=== PATIENT | female | born 1955 | race African-American/Black ===

== ENCOUNTER 2021-01-29 03:02 | Inpatient (IN) | payer OTHER ==
[~2021-01-29] VITALS: Ht 162.6 cm; Wt 82.6 kg
[2021-01-29] MEDS ORDERED: DEXAMETHASONE 10 MG/ML VIAL IV ONE (03:45)
[2021-01-29] MEDS ORDERED: LEVOFLOXACIN 750MG PREMIX 150 ML IV ONE (03:45)
[2021-01-29 04:02] LABS: HEMATOCRIT. 36.7 % (36.0-48.0); HEMOGLOBIN. 12.3 g/dL (12.0-16.0); LYMPHOCYTES % 15.9 % (20.0-50.0); MEAN CORPUSCULAR HEMOGLOBIN 27.7 pg (28.0-32.0); MEAN CORPUSCULAR VOLUME 82.9 fL (81.0-99.0); MEAN PLATELET VOLUME 9.3 fl (7.4-10.4); MONOCYTES % 7.8 % (2.0-8.0); NEUTROPHILS % 75.3 % (40.0-76.0); PLATELET 179 x1000/uL (130-400); RED BLOOD CELL COUNT 4.42 mill/uL (4.2-5.4); RED CELL DISTRIBUTION WIDTH 15.7 % (11.6-14.6)
[2021-01-29 04:04] LABS: BG BASE EXCESS 1.1 mmol/L (-2.0-2.0); BG CARBOXYHEMOGLOBIN 0.3 % (0.5-1.5); BG DEOXYHEMOGLOBIN 5.5 % (0.0-5.0); BG FRACTION INSPIRED OXYGEN 100; BG HCO3 ACT 24.8 mmol/L (22.0-26.0); BG METHEMOGLOBIN 0.1 % (0.0-1.5); BG OXYGEN SATURATION 94.5 % (92.0-98.5); BG OXYHEMOGLOBIN 94.1 % (94.0-97.0); BG PCO2 36.3 mmHg (35.0-45.0); BG PH 7.452 (7.350-7.450); BG PO2 69.4 mmHg (75.0-100.0); BG SAMPLE SITE RIGHT RADIAL; BG TOTAL HEMOGLOBIN 12.7 g/dL (12.0-18.0); BG VENT MODE MASK - BIPAP
[2021-01-29 04:11] LABS: CHLORIDE 104 mEq/L (98-107)
[2021-01-29] MEDS ORDERED: ASPIRIN 325MG EC TABLET PO ONE (04:15)
[2021-01-29 04:17] LABS: INR 0.9
[2021-01-29] MEDS ORDERED: ENOXAPARIN 80MG/0.8ML SYR SUBCUT ONE (04:45)
[2021-01-29] MEDS ORDERED: DEXTROSE 50% WATER 50ML SYRINGE IV PRN (11:15)
[2021-01-29] MEDS ORDERED: GUAIFENESIN 200MG/10ML SUGAR FREE UDC PO PRN (11:15)
[2021-01-29] MEDS: ENOXAPARIN 40MG/0.4ML SYR SUBCUT SCH (12:00)
[2021-01-29] MEDS: ERGOCALCIFEROL 50000UNITS CAPSULE PO SCH (12:04)
[2021-01-29] MEDS: DEXAMETHASONE 10 MG/ML VIAL IV SCH (12:04)
[2021-01-29 12:47] LABS: CLARITY URINE CLEAR (CLEAR); COLOR URINE YELLOW (YELLOW); KETONES URINE NEGATIVE (NEGATIVE); LEUKOCYTE ESTERASE URINE NEGATIVE (NEGATIVE); NITRITE URINE NEGATIVE (NEGATIVE); OCCULT BLOOD URINE TRACE (NEGATIVE); PROTEIN URINE 3+ (NEGATIVE); SPECIFIC GRAVITY URINE 1.014 (1.005-1.030); UROBILINOGEN URINE 0.2 E.U./dL (0.2-1.0)
[2021-01-29] MEDS ORDERED: AZITHROMYCIN 500 MG in DEXT 5% WATER 250 ML IV SCH (13:00)
[2021-01-29] MEDS: BLOOD SUGAR DIAGNOSTIC STRIP TEST SCH ×3 (13:00→21:43)
[2021-01-29] MEDS ORDERED: SODIUM CHLORIDE 0.9% INJ 3ML FLUSH IVF SCH (14:00)
[2021-01-29] MEDS: INSULIN LISPRO 100 UNITS/ML SUBCUT SCH ×3 (14:15→21:54)
[2021-01-29] MEDS: HYDRALAZINE 20MG/ML VIAL IV PRN ×2 (14:17→21:51)
[2021-01-29] MEDS: ACETAMINOPHEN 325MG TABLET PO PRN (21:51)
[2021-01-29] MEDS: GUAIFENESIN 600MG ER TABLET PO SCH (22:00)
[2021-01-29 22:30] VITALS: BP 155/86
[2021-01-29 23:00] VITALS: BP 155/86
[2021-01-29 23:58] VITALS: BP 149/79
[2021-01-30] VITALS (51 sets, daily range): BP systolic 136–201; BP diastolic 73–99
[2021-01-30] MEDS: HYDRALAZINE 20MG/ML VIAL IV PRN ×2 (03:51→10:23)
[2021-01-30 05:45] LABS: CHLORIDE 109 mEq/L (98-107)
[2021-01-30 05:49] LABS: BASOPHILS % 0.2 % (0.0-2.0); HEMATOCRIT. 36.9 % (36.0-48.0); HEMOGLOBIN. 12.4 g/dL (12.0-16.0); LYMPHOCYTES % 12.6 % (20.0-50.0); MEAN CORPUSCULAR HEMOGLOBIN 27.9 pg (28.0-32.0); MEAN CORPUSCULAR VOLUME 82.7 fL (81.0-99.0); MEAN PLATELET VOLUME 9.3 fl (7.4-10.4); MONOCYTES % 10.9 % (2.0-8.0); NEUTROPHILS % 76.3 % (40.0-76.0); PLATELET 218 x1000/uL (130-400); RED BLOOD CELL COUNT 4.46 mill/uL (4.2-5.4); RED CELL DISTRIBUTION WIDTH 15.4 % (11.6-14.6)
[2021-01-30 05:51] LABS: PHOSPHORUS 2.4 mg/dL (2.5-4.9)
[2021-01-30] MEDS: BLOOD SUGAR DIAGNOSTIC STRIP TEST SCH ×4 (06:09→21:22)
[2021-01-30] MEDS: INSULIN LISPRO 100 UNITS/ML SUBCUT SCH ×4 (06:13→21:33)
[2021-01-30] MEDS: GUAIFENESIN 600MG ER TABLET PO SCH ×2 (08:22→21:32)
[2021-01-30] MEDS: DEXAMETHASONE 10 MG/ML VIAL IV SCH (08:22)
[2021-01-30] MEDS ORDERED: LIDOCAINE HCL/PF 1% 2ML VIAL ONE (09:00)
[2021-01-30] MEDS ORDERED: AMLODIPINE 5MG TABLET PO SCH (09:30)
[2021-01-30 09:59] LABS: BG BASE EXCESS 2.9 mmol/L (-2.0-2.0); BG DEOXYHEMOGLOBIN 1.6 % (0.0-5.0); BG FRACTION INSPIRED OXYGEN 100; BG HCO3 ACT 26.7 mmol/L (22.0-26.0); BG METHEMOGLOBIN 0.3 % (0.0-1.5); BG OXYGEN SATURATION 98.4 % (92.0-98.5); BG OXYHEMOGLOBIN 98.1 % (94.0-97.0); BG PCO2 37.9 mmHg (35.0-45.0); BG PH 7.465 (7.350-7.450); BG PO2 127.3 mmHg (75.0-100.0); BG SAMPLE SITE RIGHT RADIAL; BG TOTAL HEMOGLOBIN 13.4 g/dL (12.0-18.0); BG VENT MODE MASK - BIPAP
[2021-01-30] MEDS: ASPIRIN 81MG TABLET PO SCH (10:22)
[2021-01-30] MEDS: HYDRALAZINE HCL 25MG TABLET PO SCH ×2 (14:51→21:32)
[2021-01-30] MEDS: ENOXAPARIN 40MG/0.4ML SYR SUBCUT SCH (14:52)
[2021-01-30] MEDS: NIFEDIPINE XL 60MG TAB PO SCH (15:03)
[2021-01-30] MEDS: AZITHROMYCIN 500 MG in DEXT 5% WATER 250 ML IV SCH (16:05)
[2021-01-31] VITALS (47 sets, daily range): BP systolic 142–201; BP diastolic 58–105
[2021-01-31] MEDS: HYDRALAZINE 20MG/ML VIAL IV PRN ×2 (00:43→11:01)
[2021-01-31] MEDS: ALBUTEROL 6.7GM HFA INHALER ORI PRN ×4 (03:08→20:26)
[2021-01-31] MEDS: ZOLPIDEM TARTRATE 5MG TABLET PO PRN ×2 (03:25→22:41)
[2021-01-31] MEDS: DIPHENHYDRAMINE 50MG/ML VIAL IV PRN (04:28)
[2021-01-31] MEDS: ONDANSETRON HCL 4MG/2ML INJ IV PRN (04:28)
[2021-01-31] MEDS: BLOOD SUGAR DIAGNOSTIC STRIP TEST SCH ×4 (05:34→20:13)
[2021-01-31] MEDS: HYDRALAZINE HCL 25MG TABLET PO SCH (05:37)
[2021-01-31] MEDS: INSULIN LISPRO 100 UNITS/ML SUBCUT SCH ×4 (06:00→21:23)
[2021-01-31] MEDS: ASPIRIN 81MG TABLET PO SCH (08:19)
[2021-01-31] MEDS: DEXAMETHASONE 10 MG/ML VIAL IV SCH (08:19)
[2021-01-31] MEDS: GUAIFENESIN 600MG ER TABLET PO SCH ×2 (08:19→21:21)
[2021-01-31] MEDS: NIFEDIPINE XL 60MG TAB PO SCH (08:19)
[2021-01-31] MEDS: ACETAMINOPHEN 325MG TABLET PO PRN ×3 (08:27→22:35)
[2021-01-31] MEDS: ENOXAPARIN 40MG/0.4ML SYR SUBCUT SCH (12:24)
[2021-01-31] MEDS: DILTIAZEM HCL 30MG TABLET PO SCH ×2 (13:02→21:22)
[2021-01-31] MEDS: HYDRALAZINE HCL 50MG TABLET PO SCH ×2 (13:02→21:21)
[2021-01-31] MEDS: AZITHROMYCIN 500 MG in DEXT 5% WATER 250 ML IV SCH (13:03)
[2021-01-31] MEDS ORDERED: INSULIN GLARGINE UD 100 UNITS/ML SYR SUBCUT SCH (22:00)
[2021-02-01] VITALS (61 sets, daily range): BP systolic 121–196; BP diastolic 37–100
[2021-02-01] MEDS ORDERED: ENOXAPARIN 100MG/ML SYR SUBCUT SCH (02:00)
[2021-02-01] MEDS: DILTIAZEM HCL 30MG TABLET PO SCH (05:49)
[2021-02-01] MEDS: BLOOD SUGAR DIAGNOSTIC STRIP TEST SCH ×4 (05:50→21:00)
[2021-02-01] MEDS: HYDRALAZINE HCL 50MG TABLET PO SCH ×3 (05:50→21:51)
[2021-02-01] MEDS: ONDANSETRON HCL 4MG/2ML INJ IV PRN ×3 (06:03→16:27)
[2021-02-01] MEDS: INSULIN LISPRO 100 UNITS/ML SUBCUT SCH ×4 (06:10→21:00)
[2021-02-01] MEDS: NIFEDIPINE XL 60MG TAB PO SCH (08:09)
[2021-02-01] MEDS: DEXAMETHASONE 10 MG/ML VIAL IV SCH (08:09)
[2021-02-01] MEDS: GUAIFENESIN 600MG ER TABLET PO SCH ×2 (08:09→21:52)
[2021-02-01] MEDS: ASPIRIN 81MG TABLET PO SCH (08:10)
[2021-02-01] MEDS: HYDRALAZINE 20MG/ML VIAL IV PRN (08:10)
[2021-02-01] MEDS: AZITHROMYCIN 500 MG in DEXT 5% WATER 250 ML IV SCH (14:16)
[2021-02-01] MEDS: DILTIAZEM HCL 60MG TABLET PO SCH ×2 (14:17→21:51)
[2021-02-01] MEDS: ACETAMINOPHEN 325MG TABLET PO PRN ×2 (15:37→23:49)
[2021-02-01] MEDS: INSULIN GLARGINE UD 100 UNITS/ML SYR SUBCUT SCH (22:00)
[2021-02-01] MEDS ORDERED: SPIR25TA6 PO (22:45)
[2021-02-01] MEDS ORDERED: FURO20TA4 PO (22:45)
[2021-02-01] MEDS ORDERED: METO-539 PO (22:45)
[2021-02-01] MEDS ORDERED: ISOS30TA11 PO (22:45)
[2021-02-02 00:01] VITALS: BP 127/74
[2021-02-02 04:00] VITALS: BP_SYST 127; BP_SYST 130; BP_DIAS 74; BP_DIAS 76
[2021-02-02] MEDS: DILTIAZEM HCL 60MG TABLET PO SCH ×3 (05:28→21:52)
[2021-02-02] MEDS: HYDRALAZINE HCL 50MG TABLET PO SCH ×3 (05:29→21:52)
[2021-02-02] MEDS: BLOOD SUGAR DIAGNOSTIC STRIP TEST SCH ×4 (05:35→21:00)
[2021-02-02] MEDS: INSULIN LISPRO 100 UNITS/ML SUBCUT SCH ×4 (05:48→21:53)
[2021-02-02 08:00] VITALS: BP 138/73
[2021-02-02] MEDS: ACETAMINOPHEN 325MG TABLET PO PRN ×2 (09:27→21:51)
[2021-02-02] MEDS: ENOXAPARIN 40MG/0.4ML SYR SUBCUT SCH (09:28)
[2021-02-02] MEDS: ASPIRIN 81MG TABLET PO SCH (09:28)
[2021-02-02] MEDS: GUAIFENESIN 600MG ER TABLET PO SCH ×2 (09:28→21:55)
[2021-02-02] MEDS: NIFEDIPINE XL 60MG TAB PO SCH (09:28)
[2021-02-02] MEDS: DEXAMETHASONE 10 MG/ML VIAL IV SCH (09:28)
[2021-02-02] MEDS: ONDANSETRON HCL 4MG/2ML INJ IV PRN ×2 (09:38→21:52)
[2021-02-02 12:00] VITALS: BP 104/65
[2021-02-02] MEDS: AZITHROMYCIN 500 MG in DEXT 5% WATER 250 ML IV SCH (14:13)
[2021-02-02 16:00] VITALS: BP 146/80
[2021-02-02 20:00] VITALS: BP 148/77
[2021-02-02] MEDS: ZOLPIDEM TARTRATE 5MG TABLET PO PRN (21:52)
[2021-02-02] MEDS: INSULIN GLARGINE UD 100 UNITS/ML SYR SUBCUT SCH (21:53)
[2021-02-03] VITALS: BP 124/72
[2021-02-03 04:00] VITALS: BP 137/72
[2021-02-03] MEDS: HYDRALAZINE HCL 50MG TABLET PO SCH ×3 (05:33→22:26)
[2021-02-03] MEDS: DILTIAZEM HCL 60MG TABLET PO SCH ×3 (05:34→22:27)
[2021-02-03] MEDS: BLOOD SUGAR DIAGNOSTIC STRIP TEST SCH ×4 (07:04→21:00)
[2021-02-03] MEDS: INSULIN LISPRO 100 UNITS/ML SUBCUT SCH ×4 (07:05→22:30)
[2021-02-03 08:00] VITALS: BP 130/63
[2021-02-03] MEDS: NIFEDIPINE XL 60MG TAB PO SCH (08:31)
[2021-02-03] MEDS: DEXAMETHASONE 10 MG/ML VIAL IV SCH (08:31)
[2021-02-03] MEDS: ACETAMINOPHEN 325MG TABLET PO PRN ×3 (08:31→22:28)
[2021-02-03] MEDS: ASPIRIN 81MG TABLET PO SCH (08:31)
[2021-02-03] MEDS: GUAIFENESIN 600MG ER TABLET PO SCH ×2 (08:31→22:27)
[2021-02-03] MEDS: ENOXAPARIN 40MG/0.4ML SYR SUBCUT SCH (08:31)
[2021-02-03] MEDS: ONDANSETRON HCL 4MG/2ML INJ IV PRN ×2 (08:41→22:26)
[2021-02-03 12:00] VITALS: BP 128/70
[2021-02-03] MEDS: BENZONATATE 100MG CAPSULE PO SCH ×2 (12:12→17:03)
[2021-02-03 16:00] VITALS: BP 132/68
[2021-02-03 20:00] VITALS: BP 149/80
[2021-02-03] MEDS: INSULIN GLARGINE UD 100 UNITS/ML SYR SUBCUT SCH (22:30)
[2021-02-04] VITALS: BP 132/63
[2021-02-04 04:00] VITALS: BP 132/72
[2021-02-04] MEDS: DILTIAZEM HCL 60MG TABLET PO SCH ×3 (05:40→21:21)
[2021-02-04] MEDS: HYDRALAZINE HCL 50MG TABLET PO SCH ×3 (05:40→21:21)
[2021-02-04] MEDS: BLOOD SUGAR DIAGNOSTIC STRIP TEST SCH ×4 (07:40→21:22)
[2021-02-04 08:00] VITALS: BP 147/82
[2021-02-04] MEDS: INSULIN LISPRO 100 UNITS/ML SUBCUT SCH ×4 (08:10→21:22)
[2021-02-04] MEDS: BENZONATATE 100MG CAPSULE PO SCH ×3 (09:17→17:58)
[2021-02-04] MEDS: ASPIRIN 81MG TABLET PO SCH (09:17)
[2021-02-04] MEDS: GUAIFENESIN 600MG ER TABLET PO SCH ×2 (09:18→20:32)
[2021-02-04] MEDS: ENOXAPARIN 40MG/0.4ML SYR SUBCUT SCH (09:18)
[2021-02-04] MEDS: NIFEDIPINE XL 60MG TAB PO SCH (09:18)
[2021-02-04] MEDS: DEXAMETHASONE 10 MG/ML VIAL IV SCH (09:41)
[2021-02-04] MEDS ORDERED: TEMAZEPAM 15MG CAPSULE PO PRN (11:00)
[2021-02-04 12:00] VITALS: BP 127/83
[2021-02-04 16:00] VITALS: BP 145/83
[2021-02-04] MEDS: MAGNESIUM/ALUMINUM HYDROXIDE/SIMETHICONE 30ML UDC PO PRN (17:58)
[2021-02-04 20:14] VITALS: BP 154/78
[2021-02-04] MEDS: DIPHENHYDRAMINE 50MG/ML VIAL IV PRN (20:32)
[2021-02-04] MEDS: INSULIN GLARGINE UD 100 UNITS/ML SYR SUBCUT SCH (21:22)
[2021-02-05] VITALS: BP 142/69
[2021-02-05 00:27] VITALS: BP 142/69
[2021-02-05] MEDS: DILTIAZEM HCL 60MG TABLET PO SCH ×3 (06:01→21:25)
[2021-02-05] MEDS: INSULIN LISPRO 100 UNITS/ML SUBCUT SCH ×4 (06:01→21:26)
[2021-02-05] MEDS: BLOOD SUGAR DIAGNOSTIC STRIP TEST SCH ×4 (06:01→21:25)
[2021-02-05] MEDS: HYDRALAZINE HCL 50MG TABLET PO SCH ×3 (06:01→21:25)
[2021-02-05 08:00] VITALS: BP 142/77
[2021-02-05] MEDS: ASPIRIN 81MG TABLET PO SCH (09:11)
[2021-02-05] MEDS: NIFEDIPINE XL 60MG TAB PO SCH (09:11)
[2021-02-05] MEDS: GUAIFENESIN 600MG ER TABLET PO SCH ×2 (09:11→21:25)
[2021-02-05] MEDS: BENZONATATE 100MG CAPSULE PO SCH ×3 (09:11→17:39)
[2021-02-05] MEDS: ENOXAPARIN 40MG/0.4ML SYR SUBCUT SCH (09:12)
[2021-02-05] MEDS: PANTOPRAZOLE 40MG DR TABLET PO SCH (09:12)
[2021-02-05] MEDS: DEXAMETHASONE 10 MG/ML VIAL IV SCH (09:54)
[2021-02-05] MEDS: ERGOCALCIFEROL 50000UNITS CAPSULE PO SCH (13:23)
[2021-02-05 20:00] VITALS: BP 138/62
[2021-02-05] MEDS: TEMAZEPAM 15MG CAPSULE PO SCH (21:25)
[2021-02-05] MEDS: INSULIN GLARGINE UD 100 UNITS/ML SYR SUBCUT SCH (21:27)
[2021-02-06] VITALS (8 sets, daily range): BP systolic 105–137; BP diastolic 63–77
[2021-02-06] MEDS: HYDRALAZINE HCL 50MG TABLET PO SCH ×3 (05:43→21:16)
[2021-02-06] MEDS: DILTIAZEM HCL 60MG TABLET PO SCH ×3 (05:43→21:17)
[2021-02-06] MEDS: BLOOD SUGAR DIAGNOSTIC STRIP TEST SCH ×4 (07:19→21:16)
[2021-02-06] MEDS: INSULIN LISPRO 100 UNITS/ML SUBCUT SCH ×4 (07:19→21:17)
[2021-02-06] MEDS: ENOXAPARIN 40MG/0.4ML SYR SUBCUT SCH (08:34)
[2021-02-06] MEDS: BENZONATATE 100MG CAPSULE PO SCH ×3 (08:34→17:07)
[2021-02-06] MEDS: ASPIRIN 81MG TABLET PO SCH (08:34)
[2021-02-06] MEDS: NIFEDIPINE XL 60MG TAB PO SCH (08:34)
[2021-02-06] MEDS: PANTOPRAZOLE 40MG DR TABLET PO SCH (08:34)
[2021-02-06] MEDS: GUAIFENESIN 600MG ER TABLET PO SCH ×2 (08:35→21:16)
[2021-02-06] MEDS: DEXAMETHASONE 10 MG/ML VIAL IV SCH (08:35)
[2021-02-06] MEDS: TEMAZEPAM 15MG CAPSULE PO SCH (21:16)
[2021-02-06] MEDS: INSULIN GLARGINE UD 100 UNITS/ML SYR SUBCUT SCH (23:09)
[2021-02-07] VITALS: BP 109/58
[2021-02-07 04:00] VITALS: BP 140/80
[2021-02-07] MEDS: HYDRALAZINE HCL 50MG TABLET PO SCH ×3 (06:04→22:53)
[2021-02-07] MEDS: DILTIAZEM HCL 60MG TABLET PO SCH ×3 (06:04→22:54)
[2021-02-07 07:37] LABS: HEMATOCRIT. 35.2 % (36.0-48.0); HEMOGLOBIN. 11.5 g/dL (12.0-16.0); MEAN CORPUSCULAR HEMOGLOBIN 26.9 pg (28.0-32.0); MEAN CORPUSCULAR VOLUME 82.3 fL (81.0-99.0); MEAN PLATELET VOLUME 9.4 fl (7.4-10.4); PLATELET 212 x1000/uL (130-400); RED BLOOD CELL COUNT 4.28 mill/uL (4.2-5.4); RED CELL DISTRIBUTION WIDTH 14.9 % (11.6-14.6)
[2021-02-07] MEDS: BLOOD SUGAR DIAGNOSTIC STRIP TEST SCH ×4 (07:40→21:10)
[2021-02-07 08:00] VITALS: BP 169/72
[2021-02-07] MEDS: INSULIN LISPRO 100 UNITS/ML SUBCUT SCH ×4 (08:10→21:27)
[2021-02-07] MEDS: MULTIVITAMINS,THER W-MINERALS TABLET PO SCH (08:39)
[2021-02-07] MEDS: ENOXAPARIN 40MG/0.4ML SYR SUBCUT SCH (08:40)
[2021-02-07] MEDS: ASPIRIN 81MG TABLET PO SCH (08:40)
[2021-02-07] MEDS: BENZONATATE 100MG CAPSULE PO SCH ×3 (08:40→17:21)
[2021-02-07] MEDS: NIFEDIPINE XL 60MG TAB PO SCH (08:40)
[2021-02-07] MEDS: GUAIFENESIN 600MG ER TABLET PO SCH ×2 (08:40→21:25)
[2021-02-07] MEDS: FAMOTIDINE 20MG TABLET PO SCH (08:40)
[2021-02-07] MEDS: DEXAMETHASONE 10 MG/ML VIAL IV SCH (08:41)
[2021-02-07 12:00] VITALS: BP 146/79
[2021-02-07 16:00] VITALS: BP 138/76
[2021-02-07 20:00] VITALS: BP 159/75
[2021-02-07 20:52] LABS: PLATELET ESTIMATE NORMAL
[2021-02-07] MEDS: TEMAZEPAM 15MG CAPSULE PO SCH (21:25)
[2021-02-07] MEDS: INSULIN GLARGINE UD 100 UNITS/ML SYR SUBCUT SCH (22:55)
[2021-02-08] VITALS: BP 137/66
[2021-02-08 04:00] VITALS: BP 146/78
[2021-02-08] MEDS: DILTIAZEM HCL 60MG TABLET PO SCH ×3 (06:00→21:54)
[2021-02-08] MEDS: HYDRALAZINE HCL 50MG TABLET PO SCH ×3 (06:00→21:54)
[2021-02-08] MEDS: BLOOD SUGAR DIAGNOSTIC STRIP TEST SCH ×4 (07:40→21:54)
[2021-02-08 08:00] VITALS: BP 144/88
[2021-02-08] MEDS: INSULIN LISPRO 100 UNITS/ML SUBCUT SCH ×4 (08:10→21:50)
[2021-02-08] MEDS: MULTIVITAMINS,THER W-MINERALS TABLET PO SCH (08:45)
[2021-02-08] MEDS: GUAIFENESIN 600MG ER TABLET PO SCH ×2 (08:45→21:51)
[2021-02-08] MEDS: BENZONATATE 100MG CAPSULE PO SCH ×3 (08:45→17:33)
[2021-02-08] MEDS: DEXAMETHASONE 10 MG/ML VIAL IV SCH (08:46)
[2021-02-08] MEDS: ASPIRIN 81MG TABLET PO SCH (08:46)
[2021-02-08] MEDS: FAMOTIDINE 20MG TABLET PO SCH (08:46)
[2021-02-08] MEDS: NIFEDIPINE XL 60MG TAB PO SCH (08:46)
[2021-02-08] MEDS: ENOXAPARIN 40MG/0.4ML SYR SUBCUT SCH (08:46)
[2021-02-08] MEDS: ALBUTEROL 6.7GM HFA INHALER ORI PRN (09:10)
[2021-02-08 12:00] VITALS: BP 145/82
[2021-02-08 12:32] LABS: BG BASE EXCESS -0.9 mmol/L (-2.0-2.0); BG CARBOXYHEMOGLOBIN 0.3 % (0.5-1.5); BG DEOXYHEMOGLOBIN 5.1 % (0.0-5.0); BG FRACTION INSPIRED OXYGEN 100; BG HCO3 ACT 22.2 mmol/L (22.0-26.0); BG METHEMOGLOBIN 0.3 % (0.0-1.5); BG OXYGEN SATURATION 94.9 % (92.0-98.5); BG OXYHEMOGLOBIN 94.3 % (94.0-97.0); BG PCO2 31.8 mmHg (35.0-45.0); BG PH 7.461 (7.350-7.450); BG PO2 71.7 mmHg (75.0-100.0); BG SAMPLE SITE RIGHT RADIAL; BG TOTAL HEMOGLOBIN 12.7 g/dL (12.0-18.0); BG VENT MODE HIGH FLOW
[2021-02-08 16:00] VITALS: BP 137/77
[2021-02-08 20:00] VITALS: BP 115/72
[2021-02-08] MEDS: INSULIN GLARGINE UD 100 UNITS/ML SYR SUBCUT SCH (21:50)
[2021-02-08] MEDS: TEMAZEPAM 15MG CAPSULE PO SCH (21:52)
[2021-02-09] VITALS: BP 141/77
[2021-02-09 04:00] VITALS: BP 142/81
[2021-02-09] MEDS: HYDRALAZINE HCL 50MG TABLET PO SCH ×3 (06:37→21:14)
[2021-02-09] MEDS: DILTIAZEM HCL 60MG TABLET PO SCH ×3 (06:37→21:15)
[2021-02-09] MEDS: INSULIN LISPRO 100 UNITS/ML SUBCUT SCH ×4 (07:11→21:16)
[2021-02-09] MEDS: BLOOD SUGAR DIAGNOSTIC STRIP TEST SCH ×4 (07:11→21:17)
[2021-02-09 08:00] VITALS: BP 126/70
[2021-02-09] MEDS: NIFEDIPINE XL 60MG TAB PO SCH (08:08)
[2021-02-09] MEDS: GUAIFENESIN 600MG ER TABLET PO SCH ×2 (08:08→21:15)
[2021-02-09] MEDS: MULTIVITAMINS,THER W-MINERALS TABLET PO SCH (08:08)
[2021-02-09] MEDS: FAMOTIDINE 20MG TABLET PO SCH (08:08)
[2021-02-09] MEDS: ASPIRIN 81MG TABLET PO SCH (08:08)
[2021-02-09] MEDS: BENZONATATE 100MG CAPSULE PO SCH ×3 (08:08→17:23)
[2021-02-09] MEDS: ENOXAPARIN 40MG/0.4ML SYR SUBCUT SCH (08:08)
[2021-02-09 12:00] VITALS: BP_SYST 139; BP_SYST 140; BP_DIAS 71; BP_DIAS 80
[2021-02-09 16:00] VITALS: BP 139/71
[2021-02-09 20:00] VITALS: BP 154/84
[2021-02-09] MEDS: TEMAZEPAM 15MG CAPSULE PO SCH (21:14)
[2021-02-09] MEDS: INSULIN GLARGINE UD 100 UNITS/ML SYR SUBCUT SCH (21:16)
[2021-02-10] VITALS (8 sets, daily range): BP systolic 125–153; BP diastolic 68–87
[2021-02-10] MEDS: DILTIAZEM HCL 60MG TABLET PO SCH ×3 (05:41→20:45)
[2021-02-10] MEDS: HYDRALAZINE HCL 50MG TABLET PO SCH ×3 (05:41→20:46)
[2021-02-10] MEDS: BLOOD SUGAR DIAGNOSTIC STRIP TEST SCH ×4 (07:17→20:32)
[2021-02-10] MEDS: INSULIN LISPRO 100 UNITS/ML SUBCUT SCH ×4 (07:17→20:44)
[2021-02-10] MEDS: FAMOTIDINE 20MG TABLET PO SCH (08:59)
[2021-02-10] MEDS: BENZONATATE 100MG CAPSULE PO SCH ×3 (08:59→17:33)
[2021-02-10] MEDS: MULTIVITAMINS,THER W-MINERALS TABLET PO SCH (08:59)
[2021-02-10] MEDS: ENOXAPARIN 40MG/0.4ML SYR SUBCUT SCH (08:59)
[2021-02-10] MEDS: NIFEDIPINE XL 60MG TAB PO SCH (08:59)
[2021-02-10] MEDS: ASPIRIN 81MG TABLET PO SCH (08:59)
[2021-02-10] MEDS: GUAIFENESIN 600MG ER TABLET PO SCH ×2 (08:59→20:45)
[2021-02-10] MEDS: INSULIN GLARGINE UD 100 UNITS/ML SYR SUBCUT SCH (22:31)
[2021-02-10] MEDS: TEMAZEPAM 15MG CAPSULE PO SCH ×2 (22:31→22:32)
[2021-02-11] VITALS (11 sets, daily range): BP systolic 118–160; BP diastolic 60–85
[2021-02-11] MEDS: HYDRALAZINE HCL 50MG TABLET PO SCH ×3 (05:28→21:35)
[2021-02-11] MEDS: DILTIAZEM HCL 60MG TABLET PO SCH ×3 (05:29→21:38)
[2021-02-11 07:20] LABS: HEMOGLOBIN. 11.9 g/dL (12.0-16.0); MEAN CORPUSCULAR HEMOGLOBIN 26.9 pg (28.0-32.0); MEAN CORPUSCULAR VOLUME 83.5 fL (81.0-99.0); MEAN PLATELET VOLUME 10.7 fl (7.4-10.4); PLATELET 298 x1000/uL (130-400); RED BLOOD CELL COUNT 4.43 mill/uL (4.2-5.4)
[2021-02-11] MEDS: BLOOD SUGAR DIAGNOSTIC STRIP TEST SCH ×4 (07:27→21:18)
[2021-02-11] MEDS: INSULIN LISPRO 100 UNITS/ML SUBCUT SCH ×4 (07:29→21:34)
[2021-02-11] MEDS: NIFEDIPINE XL 60MG TAB PO SCH (08:29)
[2021-02-11] MEDS: BENZONATATE 100MG CAPSULE PO SCH ×3 (08:29→17:44)
[2021-02-11] MEDS: MULTIVITAMINS,THER W-MINERALS TABLET PO SCH (08:30)
[2021-02-11] MEDS: ENOXAPARIN 40MG/0.4ML SYR SUBCUT SCH (08:30)
[2021-02-11] MEDS: FAMOTIDINE 20MG TABLET PO SCH (08:30)
[2021-02-11] MEDS: GUAIFENESIN 600MG ER TABLET PO SCH ×2 (08:30→21:41)
[2021-02-11] MEDS: ASPIRIN 81MG TABLET PO SCH (08:30)
[2021-02-11 12:29] LABS: PLATELET ESTIMATE NORMAL
[2021-02-11] MEDS: INSULIN GLARGINE UD 100 UNITS/ML SYR SUBCUT SCH (21:34)
[2021-02-11] MEDS: TEMAZEPAM 15MG CAPSULE PO SCH (23:36)
[2021-02-12] VITALS (12 sets, daily range): BP systolic 122–146; BP diastolic 62–80
[2021-02-12] MEDS: DILTIAZEM HCL 60MG TABLET PO SCH ×3 (06:08→21:12)
[2021-02-12] MEDS: HYDRALAZINE HCL 50MG TABLET PO SCH ×3 (06:08→21:11)
[2021-02-12] MEDS: INSULIN LISPRO 100 UNITS/ML SUBCUT SCH ×4 (08:00→21:08)
[2021-02-12] MEDS: BLOOD SUGAR DIAGNOSTIC STRIP TEST SCH ×4 (08:15→21:00)
[2021-02-12] MEDS: ENOXAPARIN 40MG/0.4ML SYR SUBCUT SCH (08:28)
[2021-02-12] MEDS: MULTIVITAMINS,THER W-MINERALS TABLET PO SCH (08:28)
[2021-02-12] MEDS: BENZONATATE 100MG CAPSULE PO SCH ×3 (08:30→16:43)
[2021-02-12] MEDS: NIFEDIPINE XL 60MG TAB PO SCH (08:30)
[2021-02-12] MEDS: FAMOTIDINE 20MG TABLET PO SCH (08:30)
[2021-02-12] MEDS: ASPIRIN 81MG TABLET PO SCH (08:30)
[2021-02-12] MEDS: GUAIFENESIN 600MG ER TABLET PO SCH ×2 (09:01→21:13)
[2021-02-12] MEDS: ERGOCALCIFEROL 50000UNITS CAPSULE PO SCH (13:09)
[2021-02-12] MEDS: INSULIN GLARGINE UD 100 UNITS/ML SYR SUBCUT SCH (21:09)
[2021-02-12] MEDS: TEMAZEPAM 15MG CAPSULE PO SCH (21:13)
[2021-02-13] VITALS (12 sets, daily range): BP systolic 104–148; BP diastolic 57–108
[2021-02-13] MEDS: DILTIAZEM HCL 60MG TABLET PO SCH ×3 (05:37→21:09)
[2021-02-13] MEDS: HYDRALAZINE HCL 50MG TABLET PO SCH ×2 (05:38→13:10)
[2021-02-13] MEDS: BLOOD SUGAR DIAGNOSTIC STRIP TEST SCH ×4 (07:30→20:46)
[2021-02-13] MEDS: INSULIN LISPRO 100 UNITS/ML SUBCUT SCH ×4 (08:00→20:46)
[2021-02-13] MEDS: ENOXAPARIN 40MG/0.4ML SYR SUBCUT SCH (09:02)
[2021-02-13] MEDS: MULTIVITAMINS,THER W-MINERALS TABLET PO SCH (09:03)
[2021-02-13] MEDS: FAMOTIDINE 20MG TABLET PO SCH (09:03)
[2021-02-13] MEDS: NIFEDIPINE XL 60MG TAB PO SCH (09:05)
[2021-02-13] MEDS: BENZONATATE 100MG CAPSULE PO SCH ×3 (09:06→16:28)
[2021-02-13] MEDS: GUAIFENESIN-DM 200MG-20MG/10ML UDC PO PRN (09:06)
[2021-02-13] MEDS: ASPIRIN 81MG TABLET PO SCH (09:06)
[2021-02-13] MEDS: GUAIFENESIN 600MG ER TABLET PO SCH ×2 (09:11→21:09)
[2021-02-13] MEDS: TEMAZEPAM 15MG CAPSULE PO SCH (21:08)
[2021-02-13] MEDS: HYDRALAZINE HCL 25MG TABLET PO SCH (21:09)
[2021-02-13] MEDS: INSULIN GLARGINE UD 100 UNITS/ML SYR SUBCUT SCH (21:11)
[2021-02-14] VITALS (11 sets, daily range): BP systolic 106–136; BP diastolic 54–82
[2021-02-14] MEDS: HYDRALAZINE HCL 25MG TABLET PO SCH ×3 (05:20→21:28)
[2021-02-14] MEDS: DILTIAZEM HCL 60MG TABLET PO SCH ×3 (05:20→21:28)
[2021-02-14] MEDS: INSULIN LISPRO 100 UNITS/ML SUBCUT SCH ×4 (07:30→20:16)
[2021-02-14] MEDS: BLOOD SUGAR DIAGNOSTIC STRIP TEST SCH ×4 (07:30→20:16)
[2021-02-14] MEDS: FAMOTIDINE 20MG TABLET PO SCH (07:30)
[2021-02-14] MEDS: NIFEDIPINE XL 60MG TAB PO SCH (09:04)
[2021-02-14] MEDS: BENZONATATE 100MG CAPSULE PO SCH ×3 (09:04→17:35)
[2021-02-14] MEDS: ASPIRIN 81MG TABLET PO SCH (09:04)
[2021-02-14] MEDS: GUAIFENESIN-DM 200MG-20MG/10ML UDC PO PRN (09:05)
[2021-02-14] MEDS: MULTIVITAMINS,THER W-MINERALS TABLET PO SCH (09:05)
[2021-02-14] MEDS: GUAIFENESIN 600MG ER TABLET PO SCH ×2 (09:07→21:28)
[2021-02-14] MEDS: ENOXAPARIN 40MG/0.4ML SYR SUBCUT SCH (17:36)
[2021-02-14] MEDS: TEMAZEPAM 15MG CAPSULE PO SCH (21:27)
[2021-02-14] MEDS: INSULIN GLARGINE UD 100 UNITS/ML SYR SUBCUT SCH (21:29)
[2021-02-15] VITALS (12 sets, daily range): BP systolic 118–158; BP diastolic 63–80
[2021-02-15] MEDS: DILTIAZEM HCL 60MG TABLET PO SCH ×3 (05:43→21:55)
[2021-02-15] MEDS: HYDRALAZINE HCL 25MG TABLET PO SCH ×3 (05:43→21:45)
[2021-02-15 06:13] LABS: BASOPHILS % 1.3 % (0.0-2.0); EOSINOPHILS % 3.2 % (0.0-5.0); HEMATOCRIT. 36.3 % (36.0-48.0); HEMOGLOBIN. 11.7 g/dL (12.0-16.0); LYMPHOCYTES % 9.4 % (20.0-50.0); MEAN CORPUSCULAR HEMOGLOBIN 27.1 pg (28.0-32.0); MEAN CORPUSCULAR VOLUME 83.7 fL (81.0-99.0); MEAN PLATELET VOLUME 11.1 fl (7.4-10.4); MONOCYTES % 6.4 % (2.0-8.0); NEUTROPHILS % 79.7 % (40.0-76.0); PLATELET 269 x1000/uL (130-400); RED BLOOD CELL COUNT 4.33 mill/uL (4.2-5.4); RED CELL DISTRIBUTION WIDTH 14.9 % (11.6-14.6)
[2021-02-15 06:16] LABS: CHLORIDE 109 mEq/L (98-107)
[2021-02-15] MEDS: BLOOD SUGAR DIAGNOSTIC STRIP TEST SCH ×4 (07:30→21:52)
[2021-02-15] MEDS: INSULIN LISPRO 100 UNITS/ML SUBCUT SCH ×4 (07:30→21:00)
[2021-02-15] MEDS: BENZONATATE 100MG CAPSULE PO SCH ×3 (08:34→18:29)
[2021-02-15] MEDS: ASPIRIN 81MG TABLET PO SCH (08:34)
[2021-02-15] MEDS: NIFEDIPINE XL 60MG TAB PO SCH (08:34)
[2021-02-15] MEDS: GUAIFENESIN 600MG ER TABLET PO SCH ×2 (08:35→21:46)
[2021-02-15] MEDS: FAMOTIDINE 20MG TABLET PO SCH (08:35)
[2021-02-15] MEDS: GUAIFENESIN-DM 200MG-20MG/10ML UDC PO PRN (08:35)
[2021-02-15] MEDS: MULTIVITAMINS,THER W-MINERALS TABLET PO SCH (08:35)
[2021-02-15] MEDS: ENOXAPARIN 40MG/0.4ML SYR SUBCUT SCH (18:29)
[2021-02-15] MEDS: TEMAZEPAM 15MG CAPSULE PO SCH (21:45)
[2021-02-15] MEDS: INSULIN GLARGINE UD 100 UNITS/ML SYR SUBCUT SCH (21:48)
[2021-02-15] MEDS ORDERED: INSULIN GLARGINE UD 100 UNITS/ML SYR SUBCUT SCH (22:00)
[2021-02-16] VITALS (12 sets, daily range): BP systolic 123–141; BP diastolic 65–83
[2021-02-16] MEDS: HYDRALAZINE HCL 25MG TABLET PO SCH ×3 (06:15→20:33)
[2021-02-16] MEDS: DILTIAZEM HCL 60MG TABLET PO SCH ×3 (06:16→22:04)
[2021-02-16] MEDS: INSULIN LISPRO 100 UNITS/ML SUBCUT SCH ×4 (07:30→20:41)
[2021-02-16] MEDS: BLOOD SUGAR DIAGNOSTIC STRIP TEST SCH ×4 (08:28→20:38)
[2021-02-16] MEDS: BENZONATATE 100MG CAPSULE PO SCH ×3 (08:40→18:24)
[2021-02-16] MEDS: GUAIFENESIN 600MG ER TABLET PO SCH ×2 (08:40→20:35)
[2021-02-16] MEDS: ASPIRIN 81MG TABLET PO SCH (08:41)
[2021-02-16] MEDS: MULTIVITAMINS,THER W-MINERALS TABLET PO SCH (08:41)
[2021-02-16] MEDS: FAMOTIDINE 20MG TABLET PO SCH (08:41)
[2021-02-16] MEDS: NIFEDIPINE XL 60MG TAB PO SCH (08:41)
[2021-02-16] MEDS: ENOXAPARIN 40MG/0.4ML SYR SUBCUT SCH (18:24)
[2021-02-16] MEDS: INSULIN GLARGINE UD 100 UNITS/ML SYR SUBCUT SCH (22:05)
[2021-02-17] VITALS (12 sets, daily range): BP systolic 114–138; BP diastolic 46–73
[2021-02-17] MEDS: FAMOTIDINE 20MG TABLET PO SCH (06:21)
[2021-02-17] MEDS: DILTIAZEM HCL 60MG TABLET PO SCH ×3 (06:22→21:51)
[2021-02-17] MEDS: HYDRALAZINE HCL 25MG TABLET PO SCH ×3 (06:44→20:21)
[2021-02-17] MEDS: BLOOD SUGAR DIAGNOSTIC STRIP TEST SCH ×4 (07:30→20:20)
[2021-02-17] MEDS: INSULIN LISPRO 100 UNITS/ML SUBCUT SCH ×4 (07:30→21:52)
[2021-02-17] MEDS: BENZONATATE 100MG CAPSULE PO SCH ×3 (08:34→17:31)
[2021-02-17] MEDS: ASPIRIN 81MG TABLET PO SCH (08:34)
[2021-02-17] MEDS: MULTIVITAMINS,THER W-MINERALS TABLET PO SCH (08:35)
[2021-02-17] MEDS: NIFEDIPINE XL 60MG TAB PO SCH (08:35)
[2021-02-17] MEDS: GUAIFENESIN 600MG ER TABLET PO SCH ×2 (08:35→20:21)
[2021-02-17] MEDS: ENOXAPARIN 40MG/0.4ML SYR SUBCUT SCH (17:31)
[2021-02-17] MEDS: INSULIN GLARGINE UD 100 UNITS/ML SYR SUBCUT SCH (21:53)
[2021-02-18] VITALS (12 sets, daily range): BP systolic 116–149; BP diastolic 63–81
[2021-02-18] MEDS: HYDRALAZINE HCL 25MG TABLET PO SCH ×3 (06:16→21:13)
[2021-02-18] MEDS: DILTIAZEM HCL 60MG TABLET PO SCH ×3 (06:16→21:12)
[2021-02-18] MEDS: FAMOTIDINE 20MG TABLET PO SCH (06:16)
[2021-02-18] MEDS: INSULIN LISPRO 100 UNITS/ML SUBCUT SCH ×4 (07:30→21:13)
[2021-02-18] MEDS: BLOOD SUGAR DIAGNOSTIC STRIP TEST SCH ×4 (07:30→21:34)
[2021-02-18] MEDS: BENZONATATE 100MG CAPSULE PO SCH ×3 (09:00→18:15)
[2021-02-18] MEDS: MULTIVITAMINS,THER W-MINERALS TABLET PO SCH (09:00)
[2021-02-18] MEDS: NIFEDIPINE XL 60MG TAB PO SCH (09:00)
[2021-02-18] MEDS: GUAIFENESIN 600MG ER TABLET PO SCH ×2 (09:00→21:12)
[2021-02-18] MEDS: ASPIRIN 81MG TABLET PO SCH (09:00)
[2021-02-18] MEDS: ALBUTEROL 6.7GM HFA INHALER ORI PRN (09:08)
[2021-02-18] MEDS: ENOXAPARIN 40MG/0.4ML SYR SUBCUT SCH (18:17)
[2021-02-18] MEDS: INSULIN GLARGINE UD 100 UNITS/ML SYR SUBCUT SCH (22:24)
[2021-02-19] VITALS (12 sets, daily range): BP systolic 122–145; BP diastolic 58–90
[2021-02-19] MEDS: DILTIAZEM HCL 60MG TABLET PO SCH ×3 (05:42→21:10)
[2021-02-19] MEDS: HYDRALAZINE HCL 25MG TABLET PO SCH ×3 (05:42→21:08)
[2021-02-19] MEDS: INSULIN LISPRO 100 UNITS/ML SUBCUT SCH ×4 (07:30→21:00)
[2021-02-19] MEDS: ASPIRIN 81MG TABLET PO SCH (08:12)
[2021-02-19] MEDS: BENZONATATE 100MG CAPSULE PO SCH ×3 (08:12→17:23)
[2021-02-19] MEDS: MULTIVITAMINS,THER W-MINERALS TABLET PO SCH (08:13)
[2021-02-19] MEDS: NIFEDIPINE XL 60MG TAB PO SCH (08:13)
[2021-02-19] MEDS: BLOOD SUGAR DIAGNOSTIC STRIP TEST SCH ×4 (08:13→21:11)
[2021-02-19] MEDS: GUAIFENESIN 600MG ER TABLET PO SCH ×2 (08:13→21:10)
[2021-02-19] MEDS: FAMOTIDINE 20MG TABLET PO SCH (08:22)
[2021-02-19] MEDS: ERGOCALCIFEROL 50000UNITS CAPSULE PO SCH (12:55)
[2021-02-19] MEDS: MAGNESIUM/ALUMINUM HYDROXIDE/SIMETHICONE 30ML UDC PO PRN (16:46)
[2021-02-19] MEDS: ENOXAPARIN 40MG/0.4ML SYR SUBCUT SCH (17:24)
[2021-02-19] MEDS: ONDANSETRON HCL 4MG/2ML INJ IV PRN (21:07)
[2021-02-19] MEDS: INSULIN GLARGINE UD 100 UNITS/ML SYR SUBCUT SCH (21:21)
[2021-02-20] VITALS (15 sets, daily range): BP systolic 119–147; BP diastolic 25–81
[2021-02-20] MEDS: DILTIAZEM HCL 60MG TABLET PO SCH ×3 (05:33→20:58)
[2021-02-20] MEDS: HYDRALAZINE HCL 25MG TABLET PO SCH ×3 (05:34→20:58)
[2021-02-20] MEDS: INSULIN LISPRO 100 UNITS/ML SUBCUT SCH ×4 (07:30→21:01)
[2021-02-20] MEDS: BLOOD SUGAR DIAGNOSTIC STRIP TEST SCH ×4 (07:30→21:04)
[2021-02-20] MEDS: ASPIRIN 81MG TABLET PO SCH (08:10)
[2021-02-20] MEDS: MULTIVITAMINS,THER W-MINERALS TABLET PO SCH (08:10)
[2021-02-20] MEDS: FAMOTIDINE 20MG TABLET PO SCH (08:10)
[2021-02-20] MEDS: GUAIFENESIN 600MG ER TABLET PO SCH ×2 (08:10→20:59)
[2021-02-20] MEDS: NIFEDIPINE XL 60MG TAB PO SCH (08:10)
[2021-02-20] MEDS: BENZONATATE 100MG CAPSULE PO SCH ×3 (08:10→17:09)
[2021-02-20] MEDS ORDERED: ZOLPIDEM TARTRATE 5MG TABLET PO PRN (15:45)
[2021-02-20] MEDS: ENOXAPARIN 40MG/0.4ML SYR SUBCUT SCH (17:09)
[2021-02-20] MEDS: INSULIN GLARGINE UD 100 UNITS/ML SYR SUBCUT SCH (21:03)
[2021-02-21] VITALS (12 sets, daily range): BP systolic 123–146; BP diastolic 64–80
[2021-02-21] MEDS: DILTIAZEM HCL 60MG TABLET PO SCH ×3 (05:13→21:05)
[2021-02-21] MEDS: HYDRALAZINE HCL 25MG TABLET PO SCH ×3 (05:14→21:09)
[2021-02-21 07:08] LABS: HEMATOCRIT 33.5 % (36.0-48.0); HEMOGLOBIN 10.7 g/dL (12.0-16.0); MEAN CORPUSCULAR VOLUME 84.7 fL (81.0-99.0); PLATELET 252 x1000/uL (130-400); RED BLOOD CELL COUNT 3.96 mill/uL (4.2-5.4); RED CELL DISTRIBUTION WIDTH 15.2 % (11.6-14.6)
[2021-02-21 07:19] LABS: CHLORIDE 110 mEq/L (98-107)
[2021-02-21] MEDS: INSULIN LISPRO 100 UNITS/ML SUBCUT SCH ×4 (07:30→21:50)
[2021-02-21] MEDS: BLOOD SUGAR DIAGNOSTIC STRIP TEST SCH ×4 (07:30→21:09)
[2021-02-21] MEDS: ASPIRIN 81MG TABLET PO SCH (08:28)
[2021-02-21] MEDS: BENZONATATE 100MG CAPSULE PO SCH ×3 (08:28→16:50)
[2021-02-21] MEDS: MULTIVITAMINS,THER W-MINERALS TABLET PO SCH (08:28)
[2021-02-21] MEDS: NIFEDIPINE XL 60MG TAB PO SCH (08:29)
[2021-02-21] MEDS: FAMOTIDINE 20MG TABLET PO SCH (08:29)
[2021-02-21] MEDS: GUAIFENESIN 600MG ER TABLET PO SCH ×2 (08:29→21:04)
[2021-02-21] MEDS: ENOXAPARIN 40MG/0.4ML SYR SUBCUT SCH (16:50)
[2021-02-21] MEDS: INSULIN GLARGINE UD 100 UNITS/ML SYR SUBCUT SCH (21:49)
[2021-02-22] VITALS (12 sets, daily range): BP systolic 120–157; BP diastolic 49–86
[2021-02-22] MEDS: HYDRALAZINE HCL 25MG TABLET PO SCH ×3 (05:04→21:49)
[2021-02-22] MEDS: DILTIAZEM HCL 60MG TABLET PO SCH ×3 (05:04→21:49)
[2021-02-22] MEDS: BLOOD SUGAR DIAGNOSTIC STRIP TEST SCH ×3 (07:30→21:49)
[2021-02-22] MEDS: INSULIN LISPRO 100 UNITS/ML SUBCUT SCH ×4 (07:30→21:53)
[2021-02-22] MEDS: MULTIVITAMINS,THER W-MINERALS TABLET PO SCH (08:30)
[2021-02-22] MEDS: FAMOTIDINE 20MG TABLET PO SCH (08:30)
[2021-02-22] MEDS: ASPIRIN 81MG TABLET PO SCH (08:30)
[2021-02-22] MEDS: GUAIFENESIN 600MG ER TABLET PO SCH ×2 (08:30→21:49)
[2021-02-22] MEDS: BENZONATATE 100MG CAPSULE PO SCH ×3 (08:31→18:27)
[2021-02-22] MEDS: NIFEDIPINE XL 60MG TAB PO SCH (08:31)
[2021-02-22] MEDS: ENOXAPARIN 40MG/0.4ML SYR SUBCUT SCH (18:28)
[2021-02-22] MEDS: INSULIN GLARGINE UD 100 UNITS/ML SYR SUBCUT SCH (22:02)
[2021-02-23] VITALS (11 sets, daily range): BP systolic 118–154; BP diastolic 56–76
[2021-02-23] MEDS: DILTIAZEM HCL 60MG TABLET PO SCH ×3 (05:19→21:34)
[2021-02-23] MEDS: HYDRALAZINE HCL 25MG TABLET PO SCH ×3 (05:19→21:35)
[2021-02-23] MEDS: INSULIN LISPRO 100 UNITS/ML SUBCUT SCH ×4 (07:30→21:45)
[2021-02-23] MEDS: BLOOD SUGAR DIAGNOSTIC STRIP TEST SCH ×4 (07:32→21:33)
[2021-02-23] MEDS: MULTIVITAMINS,THER W-MINERALS TABLET PO SCH (08:49)
[2021-02-23] MEDS: FAMOTIDINE 20MG TABLET PO SCH (08:49)
[2021-02-23] MEDS: NIFEDIPINE XL 60MG TAB PO SCH (08:49)
[2021-02-23] MEDS: GUAIFENESIN 600MG ER TABLET PO SCH ×2 (08:49→21:34)
[2021-02-23] MEDS: BENZONATATE 100MG CAPSULE PO SCH ×3 (08:49→18:10)
[2021-02-23] MEDS: ASPIRIN 81MG TABLET PO SCH (08:49)
[2021-02-23] MEDS: ENOXAPARIN 40MG/0.4ML SYR SUBCUT SCH (17:58)
[2021-02-23] MEDS: INSULIN GLARGINE UD 100 UNITS/ML SYR SUBCUT SCH (21:44)
[2021-02-24] VITALS (12 sets, daily range): BP systolic 132–149; BP diastolic 63–90
[2021-02-24] MEDS: DILTIAZEM HCL 60MG TABLET PO SCH ×3 (05:21→21:01)
[2021-02-24] MEDS: HYDRALAZINE HCL 25MG TABLET PO SCH ×3 (05:22→21:30)
[2021-02-24] MEDS: INSULIN LISPRO 100 UNITS/ML SUBCUT SCH ×4 (07:30→20:59)
[2021-02-24] MEDS: BLOOD SUGAR DIAGNOSTIC STRIP TEST SCH ×4 (07:30→20:36)
[2021-02-24] MEDS: BENZONATATE 100MG CAPSULE PO SCH ×3 (08:59→17:20)
[2021-02-24] MEDS: ASPIRIN 81MG TABLET PO SCH (08:59)
[2021-02-24] MEDS: NIFEDIPINE XL 60MG TAB PO SCH (09:00)
[2021-02-24] MEDS: MULTIVITAMINS,THER W-MINERALS TABLET PO SCH (09:00)
[2021-02-24] MEDS: FAMOTIDINE 20MG TABLET PO SCH (09:01)
[2021-02-24] MEDS: GUAIFENESIN 600MG ER TABLET PO SCH ×2 (09:05→20:57)
[2021-02-24] MEDS: ENOXAPARIN 40MG/0.4ML SYR SUBCUT SCH (17:11)
[2021-02-24] MEDS: INSULIN GLARGINE UD 100 UNITS/ML SYR SUBCUT SCH (21:00)
[2021-02-25] VITALS (11 sets, daily range): BP systolic 122–145; BP diastolic 61–78
[2021-02-25] MEDS: DILTIAZEM HCL 60MG TABLET PO SCH ×3 (05:21→21:06)
[2021-02-25] MEDS: HYDRALAZINE HCL 25MG TABLET PO SCH ×3 (05:22→21:02)
[2021-02-25] MEDS: INSULIN LISPRO 100 UNITS/ML SUBCUT SCH ×4 (07:30→21:00)
[2021-02-25] MEDS: BLOOD SUGAR DIAGNOSTIC STRIP TEST SCH ×4 (07:30→21:00)
[2021-02-25] MEDS: FAMOTIDINE 20MG TABLET PO SCH (08:32)
[2021-02-25] MEDS: MULTIVITAMINS,THER W-MINERALS TABLET PO SCH (08:32)
[2021-02-25] MEDS: NIFEDIPINE XL 60MG TAB PO SCH (08:32)
[2021-02-25] MEDS: ASPIRIN 81MG TABLET PO SCH (08:33)
[2021-02-25] MEDS: BENZONATATE 100MG CAPSULE PO SCH ×3 (08:33→17:52)
[2021-02-25] MEDS: GUAIFENESIN 600MG ER TABLET PO SCH ×2 (09:00→21:03)
[2021-02-25] MEDS: ENOXAPARIN 40MG/0.4ML SYR SUBCUT SCH (17:52)
[2021-02-25] MEDS: INSULIN GLARGINE UD 100 UNITS/ML SYR SUBCUT SCH (21:04)
[2021-02-26] VITALS (12 sets, daily range): BP systolic 126–152; BP diastolic 63–85
[2021-02-26] MEDS: HYDRALAZINE HCL 25MG TABLET PO SCH ×3 (05:06→21:08)
[2021-02-26] MEDS: DILTIAZEM HCL 60MG TABLET PO SCH ×3 (05:06→21:08)
[2021-02-26] MEDS: BLOOD SUGAR DIAGNOSTIC STRIP TEST SCH ×3 (07:30→21:00)
[2021-02-26] MEDS: INSULIN LISPRO 100 UNITS/ML SUBCUT SCH ×4 (07:30→21:00)
[2021-02-26] MEDS: GUAIFENESIN-DM 200MG-20MG/10ML UDC PO PRN (08:57)
[2021-02-26] MEDS: BENZONATATE 100MG CAPSULE PO SCH ×3 (08:58→17:47)
[2021-02-26] MEDS: NIFEDIPINE XL 60MG TAB PO SCH (08:58)
[2021-02-26] MEDS: ASPIRIN 81MG TABLET PO SCH (08:58)
[2021-02-26] MEDS: MULTIVITAMINS,THER W-MINERALS TABLET PO SCH (08:58)
[2021-02-26] MEDS: FAMOTIDINE 20MG TABLET PO SCH (09:05)
[2021-02-26] MEDS: GUAIFENESIN 600MG ER TABLET PO SCH ×2 (09:05→21:07)
[2021-02-26] MEDS: ERGOCALCIFEROL 50000UNITS CAPSULE PO SCH (12:15)
[2021-02-26] MEDS: ENOXAPARIN 40MG/0.4ML SYR SUBCUT SCH (17:46)
[2021-02-26] MEDS: INSULIN GLARGINE UD 100 UNITS/ML SYR SUBCUT SCH (21:09)
[2021-02-27] VITALS (9 sets, daily range): BP systolic 128–150; BP diastolic 62–84
[2021-02-27] MEDS: HYDRALAZINE HCL 25MG TABLET PO SCH ×2 (06:38→13:03)
[2021-02-27] MEDS: FAMOTIDINE 20MG TABLET PO SCH (06:38)
[2021-02-27] MEDS: DILTIAZEM HCL 60MG TABLET PO SCH ×2 (06:38→13:04)
[2021-02-27] MEDS: INSULIN LISPRO 100 UNITS/ML SUBCUT SCH ×2 (07:30→11:44)
[2021-02-27] MEDS: ASPIRIN 81MG TABLET PO SCH (08:10)
[2021-02-27] MEDS: BLOOD SUGAR DIAGNOSTIC STRIP TEST SCH ×2 (08:10→11:44)
[2021-02-27] MEDS: MULTIVITAMINS,THER W-MINERALS TABLET PO SCH (08:10)
[2021-02-27] MEDS: BENZONATATE 100MG CAPSULE PO SCH ×2 (08:10→13:02)
[2021-02-27] MEDS: NIFEDIPINE XL 60MG TAB PO SCH (08:11)
== END 2021-02-27 15:17 | disposition home or self-care (01) | DRG 871 ==
LOC: ER 03:02 → ENRESERV 21:09 → MICUSO 22:22 → 7WST 02-01 20:40 → 5EST 02-10 14:17
PROVIDERS: ADMIT Internal Medicine; ATTEND Internal Medicine
PROC: 5A09457 Assistance with Respiratory Ventilation, 24-96 Consecutive Hours, Continuous Positive Airway Pressure (ICD-10-PCS; principal; 2021-01-29)
DX: A41.89 Other specified sepsis (principal); U07.1 COVID-19; R65.21 Severe sepsis with septic shock; J12.82 Pneumonia due to coronavirus disease 2019; J96.01 Acute respiratory failure with hypoxia; I21.A1 Myocardial infarction type 2; E44.0 Moderate protein-calorie malnutrition; J44.0 Chronic obstructive pulmonary disease with (acute) lower respiratory infection; I10 Essential (primary) hypertension; E11.65 Type 2 diabetes mellitus with hyperglycemia; I16.0 Hypertensive urgency; E78.5 Hyperlipidemia, unspecified; N28.9 Disorder of kidney and ureter, unspecified; E66.9 Obesity, unspecified; Z79.82 Long term (current) use of aspirin; Z78.9 Other specified health status; Z88.0 Allergy status to penicillin; Z88.2 Allergy status to sulfonamides
CPT/HCPCS: 36415; 36600; 71045; 80048; 80053; 81003; 82375; 82728; 82805; 82962; 83036; 83605; 83735; 83880; 84100; 84145; 84484; 85025; 85027; 85379; 86140; 87426; 87635; 93005; 93306; 93970; 94640; 94660; 99291; J0360; J0456; J1100; J1200; J1650; J1815; J1956; J2405; J3490; J7060